=== PATIENT | female | born 1980 | race Caucasian/White ===

== ENCOUNTER 2021-07-16 18:25 | Emergency (ER) | payer OTHER ==
[~2021-07-16 18:25] MED LIST: K-DUR20 MEQ PO; MEDROL 4MG DOSEP4 MG PO; ONDANSETRON HCL4 MG PO; ZPAK PO
[2021-07-16 20:01] LABS: BILIRUBIN NEGATIVE (NEGATIVE); BLOOD 3+ Ery/uL (NEGATIVE); CLARITY CLEAR (CLEAR); COLOR YELLOW (YELLOW); GLUCOSE (U) NORMAL (NORMAL); LEUKOCYTES NEGATIVE Leu/uL (NEGATIVE); NITRITE NEGATIVE (NEGATIVE); PROTEIN NEGATIVE (NEGATIVE); SPECIFIC GRAVITY 1.015 (1.001-1.030); UROBILINOGEN 0.2 mg/dL (0.2-1.0); pH 6.5 (5.0-9.0)
[2021-07-16 20:06] LABS: URINARY RBC TNTC
[2021-07-16 20:07] LABS: YEAST PRESENT
[2021-07-16 20:08] LABS: BACTERIA TRACE
[2021-07-16 20:13] LABS: CALCIUM OXALATE CRYSTALS TRACE
[2021-07-16 20:17] LABS: BASOPHIL 0.2 % (0-2); EOSINOPHIL 0 % (0-5); HGB 13.3 g/dl (12.5-16.0); LYMPHOCYTE 15.6 % (15-48); MCH 29.9 pg (25.0-31.0); MCHC 32.4 g/dL (32.0-36.0); MCV 92.1 fL (78.0-100.0); MPV 9.2 fL (6.0-9.5); NEUTROPHIL 78.3 % (41-80); NRBC 0; PLT 379 K/uL (150-400); RBC 4.45 M/uL (4.20-5.40); WBC 14.1 K/uL (4.0-10.5)
[2021-07-16 20:30] LABS: ALBUMIN 3.7 g/dL (3.4-5.0); BILIRUBIN - TOTAL 0.2 mg/dL (0.2-1.0); CREATININE 0.92 mg/dL (0.51-0.95); GLOBULIN (CALCULATION) 4.5 g/dL; POTASSIUM 3.9 mmol/L (3.5-5.1); TOTAL PROTEIN 8.2 g/dL (6.4-8.2)
[2021-07-16 21:06] LABS: LACTIC ACID 1.9 mmol/L (0.4-1.9)
[2021-07-16] MEDS ORDERED: FLOMAX 0.4 MG0.4 MG PO (22:16)
[2021-07-16] MEDS ORDERED: NORCO 5-325 TA1 EACH PO (22:16)
[2021-07-16] MEDS ORDERED: ZOFRAN4 M1 PO (22:16)
== END 2021-07-16 23:03 | disposition home or self-care (01) ==
LOC: FER 18:25
PROVIDERS: Nurse Practitioner Family
DX: N13.2 Hydronephrosis with renal and ureteral calculous obstruction (principal); B37.49 Other urogenital candidiasis; R11.2 Nausea with vomiting, unspecified
CPT/HCPCS: 36415; 80053; 81001; 82150; 83605; 83690; 85025; 87040; 87088; J1170; J2405; J7030

== ENCOUNTER 2021-07-20 10:35 | Emergency (ER) | payer OTHER ==
[~2021-07-20 10:35] MED LIST changes: +FLOMAX 0.4 MG0.4 MG PO; +NORCO 5-325 TA1 EACH PO; +ZOFRAN4 M1 PO
[2021-07-20 11:22] LABS: BILIRUBIN NEGATIVE (NEGATIVE); BLOOD 3+ Ery/uL (NEGATIVE); CLARITY CLOUDY (CLEAR); COLOR YELLOW (YELLOW); GLUCOSE (U) NORMAL (NORMAL); LEUKOCYTES NEGATIVE Leu/uL (NEGATIVE); NITRITE NEGATIVE (NEGATIVE); PROTEIN TRACE (LOW) mg/dL (NEGATIVE); SPECIFIC GRAVITY 1.025 (1.001-1.030); UROBILINOGEN 0.2 mg/dL (0.2-1.0)
[2021-07-20 11:32] LABS: BASOPHIL 0.4 % (0-2); EOSINOPHIL 0.2 % (0-5); HCT 45.9 % (37.0-47.0); HGB 14.7 g/dl (12.5-16.0); LYMPHOCYTE 14.8 % (15-48); MCH 29.5 pg (25.0-31.0); MONOCYTE 2.9 % (0-12); NEUTROPHIL 81.3 % (41-80); PLT 358 K/uL (150-400); RBC 4.99 M/uL (4.20-5.40); WBC 13.8 K/uL (4.0-10.5)
[2021-07-20 11:37] LABS: ALBUMIN 3.8 g/dL (3.4-5.0); BILIRUBIN - TOTAL 0.2 mg/dL (0.2-1.0); BUN/CREAT RATIO (CALC) 8.8 RATIO; CREATININE 1.02 mg/dL (0.51-0.95); GLOBULIN (CALCULATION) 4.4 g/dL; TOTAL PROTEIN 8.2 g/dL (6.4-8.2)
[2021-07-20 11:47] LABS: BACTERIA 2+; URINARY RBC TNTC; URINARY WBC RARE
[2021-07-20 11:51] LABS: NRBC 0
== END 2021-07-20 13:41 | disposition home or self-care (01) ==
LOC: FER 10:35
PROVIDERS: Internal Medicine
DX: N13.2 Hydronephrosis with renal and ureteral calculous obstruction (principal); R10.84 Generalized abdominal pain; Z91.041 Radiographic dye allergy status
CPT/HCPCS: 36415; 80053; 81001; 85025; J1170; J2405; J7030